=== PATIENT | female | born 1935 | race Caucasian/White ===

== ENCOUNTER → 2017-12-31 | Outpatient (CLI) | payer OTHER, BC ==
[~2017-12-31] VITALS: Ht 154.9 cm; Wt 80.3 kg
[~2017-12-31] MED LIST: AMBIEN 5 MG TABL5 M1 PO; APAP650 PO; ARTHROTEC 50 E1 EACH PO; ASPIR 8181 MG PO; BENICAR20 MG PO; BYSTOLIC10 MG PO; CALCIUM 500 +1 EAC5 PO; CENTRUM COMPLE1 EACH PO; EDARBI80 MG PO; HYDROCHLOROTHIA25 M2 PO; LABETALOL 100100 MG PO; LIVALO2 MG PO; LOVASTAT10 PO; LUTEIN10 MG PO; MOTION RELIEF25 MG PO; NORVASC5 MG PO; OCUVITE ADULT1 EACH PO; OMEPRAZOLE20 M2 PO; PRILOSEC40 MG; PROCARDIA XL60 MG PO; REQUIP1 MG PO; RESTASIS1 EACH OPHTHALMIC; TRAMADOL 50 MG50 MG PO; VITAMIN D3400 UNIT PO; XANAX 0.25 MG0.25 MG PO
--- NOTE | ~2017-12-31 | HPC ---
[facility] [place] [address] PAIN MANAGEMENT CONSULTATION Name: CRISTI MANZANARES Room #: REG Francia Raul.#: [id number] Admission: 12/31/17 Attend Phys: Gal Honeycutt DO Discharge: Date of : 31 Report #: [id number] THIS REPORT FOR: //name// CC: Elmira Honeycutt DATE OF SERVICE: 12/31/2017 CHIEF COMPLAINT: Low back pain, bilateral lower extremity pain with paresthesias. HISTORY OF PRESENT ILLNESS: As you know, the patient is an 82-year-old female who began experiencing low back pain, bilateral lower extremity pain in 08/2017. She denies injury or trauma that may have led to symptom development. She indicates pain was very intense until about 2 weeks ago where she has had near complete resolution of symptoms. She states over the past 2 weeks, her pain has improved significantly to the point where she is only bothered by it periodically. She was referred to our clinic initially to discuss treatment options such as lumbar epidural injections. Given the findings on her MRI, she apparently is doing very well at this time. She did keep the appointment to discuss options for treatment. Today, the patient states the pain she experienced was continuous, steady and constant. She described the pain that was present 2 weeks ago as burning, shooting, cramping, aching, sharp, stabbing and tender. She had placed her pain score 5/10, daily average at 4-6/10, worst pain has been is 9/10. The patient indicates today pain level of approximately 2/10. She states that activities, walking, standing exacerbates symptoms, nothing appeared to improve pain until about 2 weeks ago when it spontaneously began to improve. She was referred to our clinic for pain that was present 2 weeks ago, but is now greatly improved. PAST MEDICAL HISTORY: 1. Anemia. 2. Hypertension. 3. Chronic kidney disease. 4. Thyroid disease. 5. Basal cell carcinoma. 6. Squamous cell carcinoma. 7. Coronary artery disease requiring interventions. PAST SURGICAL HISTORY: 1. Open reduction internal fixation of the fibula. 2. Squamous cell excision. 3. Nose flap. 4. Greater saphenous vein ablations. [facility] [address] [place] [address] PAIN MANAGEMENT CONSULTATION Name: CRISTI MANZANARES [id number] Admission: 12/31/17 Attend Phys: Gal Honeycutt DO Discharge: Date of : 31 Report #: [id number] SOCIAL HISTORY: The patient denies tobacco, alcohol, IV or illicit drug use. 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 She is not receiving workmen's compensation nor she is trying to obtain disability benefits. She is unaccompanied at today's visit. REVIEW OF SYSTEMS: Positive for weight change, decrease in appetite, fatigue and weakness, eye disease, wearing corrective eyewear, double vision, blurry vision, macular degeneration, hearing loss with tinnitus, voice changes, heart trouble, occasional palpitations, nocturia, incontinence and dribbling to urine, skin color changes, varicose veins, lightheadedness and dizziness, numbness and tingling sensations, history of transient ischemic attacks with no residual deficits, memory loss with confusion, thyroid disease, heat and cold intolerance and anemia. All other review of systems is negative per 12-point review of systems other than those listed in history of present illness. Pain impact score 28/70 indicating mild to moderate interference of daily activity secondary to pain. ALLERGIES: SCOPOLAMINE. CURRENT MEDICATIONS: Acetaminophen 650 mg twice a day, cholecalciferol 400 units once a day, alprazolam 0.25 mg p.o. at bedtime, zolpidem 5 mg p.o. at bedtime, Procardia 60 mg once a day, tramadol 50 mg every 6 hours p.r.n. for pain., Edarbi 80 mg once a day, Livalo 2 mg once a day, aspirin 81 mg per day, Bystolic 10 mg per day, hydrochlorothiazide 25 mg per day, meclizine 25 mg p.r.n., omeprazole 20 mg per day, Restasis 1 drop each eye twice a day. IMAGING: MRI lumbar spine obtained on 12/12/2017 shows L1-L2, mild central canal stenosis, mild neural foraminal stenosis; L2-L3, mild central canal stenosis, mild neural foraminal stenosis; L3-L4, mild circumferential disk bulge, no central canal stenosis, mild neural foraminal stenosis; L4-L5, moderate circumferential disk bulge, grade 1 retrolisthesis of L4 on L5. There is a moderate to severe neural foraminal stenosis with thecal sac measuring 0.6 cm at L5-S1, disk osteophyte complex, moderate facet arthropathy, moderate bilateral neural foraminal encroachment, mild central canal stenosis. PQRS: The patient does have known osteoarthritis. No rheumatoid arthritis. Pain intensity is 5/10. Fall risk is yes, she did have a fall in the past 3 months. She believes this is due to weakness. She does use a roller walker for ambulation. She is not on blood thinners. She does have a history of hypertension. She is not on a chronic opioid therapy. She has a low opioid risk. FUNCTIONAL ASSESSMENT: Secondary to pain impact score is as indicated above. PHYSICAL EXAMINATION: [facility] [address] [place] [address] PAIN MANAGEMENT CONSULTATION Name: CRISTI MANZANARES Room #: REG [facility]#: [id number] Admission: 12/31/17 Attend Phys: Gal Honeycutt DO Discharge: Date of : 33 Report #: [id number] VITAL SIGNS: Blood pressure 186/72, pulse is 54, respiratory rate 16, unlabored. The patient is 98% on room air. Height 5 feet 1 inch tall, weight 177 pounds, BMI calculated 33.5. GENERAL: Well-developed, well-nourished, well-hydrated, exogenously obese 82-year-old female. She appears her stated age, pain is rated no greater than 4/10. HEENT: Normocephalic, atraumatic. Pupils equal, round, reactive to light. Extraocular muscles are intact. Sclerae nonicteric without injection. NEUROLOGIC: Cranial nerves 2 through 12 grossly intact. Speech is fluent. The patient deemed a good historian. LUNGS: Clear. No wheeze, rhonchi or rales. CARDIOVASCULAR: Regular. No appreciable gallop, no rub. ABDOMEN: Soft, nontender, nondistended. EXTREMITIES: Show no clubbing, no cyanosis, no edema. MUSCULOSKELETAL: Lower extremity strength appears equal and symmetrical 5/5. She is intact to light touch from L1 through S2 dermatomes. Deep tendon reflexes are symmetrical, but diminished at the patella and Achilles. Ankle clonus negative. Babinski is negative. Gait mildly antalgic. Seated straight leg raising negative. Supine straight leg raising negative. David test negative. Modified Gaenslen's is positive for axial low back pain. ASSESSMENT: 1. Lumbar radiculopathy. 2. Spinal stenosis of lumbar spine. 3. Neural foraminal stenosis of lumbar spine. 4. Lumbosacral spondylosis with radiculopathy. 5. Spondylolisthesis of L4 on L5. 6. Lumbar degeneration. PLAN: 1. The patient returns today in followup visit indicating that her pain has improved over the past 2 weeks. The patient states the pain began to improve spontaneously. She is now down to a level of about 4/10, which is tolerable for her. At present, she has indicated she does not wish interventional treatments or medication therapy changes at this time. She wishes to determine if her symptoms will continue to improve. I am pleased to see the patient is improving and is at a level of tolerable from a pain standpoint. We did discuss treatment options with the patient. For completeness sake today, we discussed the following as treatment options for suspected lumbar radiculopathy secondary to neural foraminal stenosis and spinal stenosis. We discussed physical therapy, stretching exercise, core strengthening. As you are aware, the patient does have a history of education in this area and she has begun this and believes this may be the source why the patient's symptoms have improved. She will continue these activities at home. She does appear to be quite active with this treatment. We discussed medication management with [address] [address] PAIN MANAGEMENT CONSULTATION Name: CRISTI MANZANARES Room #: REG TRINY Coles#: [id number] Admission: 12/31/17 Attend Phys: Gal Honeycutt DO Discharge: Date of : 33 Report #: [id number] neuropathic pain medication and a nonsteroidal anti-inflammatory. We discussed epidural injections for which the patient was referred to our clinic and surgical options. At this time, the patient feels she is doing well, but appreciates the information provided on treatment options. 2. No medication changes were made on today's visit. The patient will continue current medical therapy as previously prescribed. I recommend she also continue her physical activity as currently utilized. 3. We wish to thank the referring team for the opportunity to see this patient in consultation. We will keep you apprised of her treatment if she does return for any type of injections or further evaluation. Again, we wish to thank you for the opportunity to see this patient in consultation. <ELECTRONICALLY SIGNED> By: Gal Honeycutt DO 01/14/18 [id number] [id number] Gal Honeycutt DO /nt
[2017-12-31 10:41] VITALS: BP 186/72
== END ==
LOC: PAIN 06:47
DX: M48.061 Spinal stenosis, lumbar region without neurogenic claudication (principal); M43.16 Spondylolisthesis, lumbar region; M47.27 Other spondylosis with radiculopathy, lumbosacral region; R20.2 Paresthesia of skin; I12.9 Hypertensive chronic kidney disease with stage 1 through stage 4 chronic kidney disease, or unspecified chronic kidney disease; N18.9 Chronic kidney disease, unspecified; I25.10 Atherosclerotic heart disease of native coronary artery without angina pectoris

== ENCOUNTER → 2019-12-01 | Outpatient (CLI) | payer MEDICARE | LOC: SJCVC 13:19 | DX: R00.1 Bradycardia, unspecified (principal); I34.0 Nonrheumatic mitral (valve) insufficiency; E78.00 Pure hypercholesterolemia, unspecified; I27.20 Pulmonary hypertension, unspecified; I87.2 Venous insufficiency (chronic) (peripheral); I73.9 Peripheral vascular disease, unspecified; I12.9 Hypertensive chronic kidney disease with stage 1 through stage 4 chronic kidney disease, or unspecified chronic kidney disease; N18.9 Chronic kidney disease, unspecified; Z72.89 Other problems related to lifestyle; Z79.82 Long term (current) use of aspirin ==

== ENCOUNTER → 2020-09-06 | Outpatient (CLI) | payer MEDICARE | LOC: SJCVC 11:15 | PROVIDERS: ATTEND Internal Medicine Cardiovascular Disease | DX: I12.9 Hypertensive chronic kidney disease with stage 1 through stage 4 chronic kidney disease, or unspecified chronic kidney disease (principal); N18.30 Chronic kidney disease, stage 3 unspecified; I87.2 Venous insufficiency (chronic) (peripheral); E78.00 Pure hypercholesterolemia, unspecified; Z79.899 Other long term (current) drug therapy ==

== ENCOUNTER → 2021-03-29 | Outpatient (CLI) | payer MEDICARE | LOC: SJCVCIMAG 08:40 | PROVIDERS: ATTEND Internal Medicine Cardiovascular Disease | DX: I08.3 Combined rheumatic disorders of mitral, aortic and tricuspid valves (principal); I27.20 Pulmonary hypertension, unspecified; E78.00 Pure hypercholesterolemia, unspecified; I13.0 Hypertensive heart and chronic kidney disease with heart failure and stage 1 through stage 4 chronic kidney disease, or unspecified chronic kidney disease; I50.9 Heart failure, unspecified; N18.30 Chronic kidney disease, stage 3 unspecified; I77.9 Disorder of arteries and arterioles, unspecified; R60.9 Edema, unspecified; K21.9 Gastro-esophageal reflux disease without esophagitis; Z98.890 Other specified postprocedural states; Z88.8 Allergy status to other drugs, medicaments and biological substances; Z79.82 Long term (current) use of aspirin; Z79.899 Other long term (current) drug therapy ==

== ENCOUNTER → 2021-04-05 | Outpatient (CLI) | payer MEDICARE | LOC: SJCVC 12:41 | PROVIDERS: ATTEND Internal Medicine Cardiovascular Disease | DX: I11.0 Hypertensive heart disease with heart failure (principal); I50.9 Heart failure, unspecified; I27.20 Pulmonary hypertension, unspecified; I60.9 Nontraumatic subarachnoid hemorrhage, unspecified; I87.2 Venous insufficiency (chronic) (peripheral); I77.9 Disorder of arteries and arterioles, unspecified; K21.9 Gastro-esophageal reflux disease without esophagitis; Z79.82 Long term (current) use of aspirin; Z79.899 Other long term (current) drug therapy; Z88.8 Allergy status to other drugs, medicaments and biological substances; Z88.1 Allergy status to other antibiotic agents ==

== ENCOUNTER → 2021-10-13 | Outpatient (CLI) | payer MEDICARE | LOC: SJCVCIMAG 12:01 | PROVIDERS: ATTEND Internal Medicine Cardiovascular Disease | DX: I34.0 Nonrheumatic mitral (valve) insufficiency (principal); I27.20 Pulmonary hypertension, unspecified; I10 Essential (primary) hypertension ==